=== PATIENT | female | born 1980 | race African-American/Black ===

== ENCOUNTER 2025-03-03 17:35 | Emergency (ER) | payer OTHER ==
[2025-03-03 17:47] VITALS: BP 148/97; PULSE 92; RESP 18; BMI 34.9
[2025-03-03] MEDS ORDERED: ALBUTEROL SO4 2.5/IPRATROPIUM 0.5 INH SOL 3 ML VIAL.NEB. NEB ONE (18:08)
[2025-03-03] MEDS: ALBUTEROL SO4 2.5/IPRATROPIUM 0.5 INH SOL 3 ML VIAL.NEB. NEB ONE (18:19)
[2025-03-03] MEDS ORDERED: ACETAMINOPHEN 325 MG TABLET (FP) ONE (18:31)
[2025-03-03] MEDS: ACETAMINOPHEN 325 MG TABLET (FP) PO ONE (18:34)
[2025-03-03] MEDS ORDERED: DIPHTH,PERTUSS(ACELL),TET 0.5 ML DISP.SYRIN IM ONE (19:43)
[2025-03-03] MEDS: DIPHTH,PERTUSS(ACELL),TET 0.5 ML DISP.SYRIN IM ONE (19:47)
[2025-03-03] MEDS ORDERED: BACITRACIN 0.9 GM PACKET TP ONE ×2 (20:08→20:36)
[2025-03-03] MEDS ORDERED: BACITRACIN ZINC 15 GM TUBE TOPICAL OINTMENT ONE (20:39)
== END 2025-03-03 21:26 | disposition home or self-care (01) ==
LOC: JER 17:35
PROC: 3E0234Z Introduction of Serum, Toxoid and Vaccine into Muscle, Percutaneous Approach (ICD-10-PCS; principal; 2025-03-03)
PROC: 3E0F7GC Introduction of Other Therapeutic Substance into Respiratory Tract, Via Natural or Artificial Opening (ICD-10-PCS; 2025-03-03)
DX: S06.0X0A Concussion without loss of consciousness, initial encounter (principal); S00.31XA Abrasion of nose, initial encounter; R42 Dizziness and giddiness; R06.2 Wheezing; Z23 Encounter for immunization; W22.09XA Striking against other stationary object, initial encounter
CPT/HCPCS: 70450-TC; 70486-TC; 72125-TC; 84703; 90471; 90715; 93005; 93010; 94640; 99285-25